=== PATIENT | male | born 1980 ===

== ENCOUNTER 2017-06-01 15:16 | Emergency (ER) | payer OTHER ==
[2017-06-01 15:16] VITALS: BMI 23.3
[2017-06-01 15:55] VITALS: RESP 18; O2SAT 95
--- NOTE | 2017-06-01 17:56 | RAD ---
PROCEDURE: Left Hand Radiographs. HISTORY: att 2nd and 3rd [facility] COMPARISON: None. FINDINGS: BONES: There is no acute displaced fracture or bone destruction. There is a lucent lesion in the proximal phalanx of the 3rd metacarpal with ground-glass matrix. Bone alignment and mineralization are normal. JOINTS: The joint spaces are preserved. SOFT TISSUES: There is mild soft tissue swelling at the proximal interphalangeal joint of the middle finger. OTHER FINDINGS: None. IMPRESSION: 1. No acute fracture or dislocation. 2. 

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
[2017-06-01 18:48] VITALS: BP 121/73; PULSE 56; TEMP 97.8
== END 2017-06-01 18:48 | disposition home or self-care (01) ==
LOC: C.ER 15:16
DX: S60.222A Contusion of left hand, initial encounter (principal); V18.0XXA Pedal cycle driver injured in noncollision transport accident in nontraffic accident, initial encounter